=== PATIENT | female | born 1985 | race Caucasian/White ===

== ENCOUNTER 2017-10-09 11:41 | Day surgery (SDC) | payer BC ==
[2017-10-09] MEDS ORDERED: LIDOCAINE 2% (SDV) 5 ML INJ (13:45)
[2017-10-09] MEDS ORDERED: PROPOFOL 20 ML (13:45)
[2017-10-09] MEDS ORDERED: MIDAZOLAM 1 MG/ML 2 ML INJ (13:46)
[2017-10-09] MEDS ORDERED: FENTAnyl 50 MCG/ML VIAL (13:46)
== END 2017-10-09 16:04 | disposition home or self-care (01) ==
LOC: GIL 11:41
DX: K52.89 Other specified noninfective gastroenteritis and colitis (principal); R12 Heartburn; K21.9 Gastro-esophageal reflux disease without esophagitis; K29.70 Gastritis, unspecified, without bleeding; K64.8 Other hemorrhoids
CPT/HCPCS: 43239; 87081; 88305